=== PATIENT | female | born 1930 | race Caucasian/White ===

== ENCOUNTER 2016-12-28 02:10 | Emergency (ER) | payer MEDICARE, OTHER ==
[~2016-12-28 02:10] MED LIST: ADULT LOW DOSE81 MG PO; AMLODIPINE BESYL5 MG PO; ANTIVERT12.5 MG PO; BISOPROLOL FUMA10 MG PO; CALCIUM PO; CEFTIN500 MG PO; CLARITIN10 M2 PO; FLUTICASONE PROPIONA; HYDRALAZINE HCL25 MG PO; MULTIVITAMINS1 EAC1 PO; NEXIUM20 MG PO; PRAVASTATIN SOD10 MG PO; PROAIR HFA PO; SINGULAIR10 MG PO; TRAMADOL HCL50 MG PO; VITAMIN D1000 UNIT PO; [UNRECOGNIZED DRUG - OTHER] PO
--- NOTE | 2016-12-28 06:22 | ER ---
ADMIT: 12/28/2016 RM/LOC: ER [facility] MR#: [id number] [id number] [place], [place] [id number] [address] [place] [address] Emergency Room Report SEX: F AGE: 86 : 1930 DATE: 12/28/2016 Patient is an 86-year-old female with history of asthma, chronic pain, osteoporosis, nonobstructive coronary artery disease with normal heart cath in 2010. Last [facility] consultation on 03/31/2013. States for the past 3 days, she has had epigastric substernal chest discomfort associated with shortness of breath, nonproductive cough and vague chest tightness and left shoulder discomfort. Exam remarkable for nontoxic, afebrile, slightly anxious female with no audible wheeze. Chest x-ray unremarkable. EKG sinus rhythm without ST-T or Q-wave change. No prior tracing for comparison. CTA chest showed no evidence of PE or pneumonia. Hemoglobin 11.6, CRP 0.67, lipase 111. Sodium 137. Normal CK-MB and troponin. D-dimer elevated at 2.11. BNP 361. UA negative. The patient was given 2 DuoNeb, Solu-Medrol, magnesium with minimal improvement. Ultimately given GI cocktail with marked improvement. Advised liquid antacids as needed. Home with doxycycline 200 mg load in department, 100 mg b.i.d. x7 days. Prednisone 30 mg q.a.m. x5 days. Follow up Sully Christiansen this week. Cayden Cordon MD/ marli JOB #: [id number] CC: Cayden Cordon MD, Attending Physician Sully Chavez APRN, Family Physician Sully Chavez APRN
== END 2016-12-28 04:30 | disposition home or self-care (01) ==
LOC: ER 02:10
DX: J40 Bronchitis, not specified as acute or chronic (principal); K21.9 Gastro-esophageal reflux disease without esophagitis; I10 Essential (primary) hypertension; E78.5 Hyperlipidemia, unspecified; Z90.710 Acquired absence of both cervix and uterus; Z88.0 Allergy status to penicillin; Z88.8 Allergy status to other drugs, medicaments and biological substances

== ENCOUNTER → 2017-01-20 | Outpatient (CLI) | payer MEDICARE, OTHER | END | disposition home or self-care (01) | LOC: RAD.S 01-18 12:50 | DX: Z12.31 Encounter for screening mammogram for malignant neoplasm of breast (principal) ==